=== PATIENT | male | born 1945 | race Caucasian/White ===

== ENCOUNTER 2016-05-24 10:21 | Outpatient (CLI) | payer MEDICARE, BC | END 2016-05-24 10:22 | disposition home or self-care (01) | LOC: MADLABBHPM 10:21 | PROVIDERS: ATTEND Family Medicine | DX: M79.671 Pain in right foot (principal) | CPT/HCPCS: 36415; 84550 ==

== ENCOUNTER 2018-04-15 09:20 | Outpatient (CLI) | payer MEDICARE, BC ==
--- NOTE | 2018-04-15 09:58 | RAD ---
THREE VIEWS LEFT HAND: Comparison: None. History: Third digit abscess with pain and swelling. FINDINGS: Three views of the left hand shows no evidence of acute fracture or dislocation. No osseous erosions are seen. No radiopaque foreign body is seen. No significant degenerative changes are present. IMPRESSION: Unremarkable exam. POS: C
--- NOTE | 2018-04-15 10:09 | RAD ---
TWO VIEWS RIGHT HAND: Comparison: None. History: Right hand arthritis and pain. FINDINGS: Three views of the right hand shows no evidence of acute fracture or dislocation. No significant dege nerative changes are seen. No soft tissue swelling is present. IMPRESSION: Unremarkable exam. POS: C
[2018-04-15 10:15] LABS: Cardiac Risk 4.9 (Less than 4.5)
== END 2018-04-15 09:21 | disposition home or self-care (01) ==
LOC: MADLABBHPM 09:20
PROVIDERS: ATTEND Family Medicine
DX: L02.512 Cutaneous abscess of left hand (principal); M79.641 Pain in right hand; E78.2 Mixed hyperlipidemia
CPT/HCPCS: 36415; 80061

== ENCOUNTER 2021-02-05 10:48 | Outpatient (CLI) | payer MEDICARE ==
[2021-02-05 11:26] LABS: Anion Gap 13 mmol/L (10-20); BUN (Urea Nitrogen) 22 mg/dL (8.4-25.7); Calc. Creatinine Clearance 0 mL/min (70-130); Calcium 9.4 mg/dL (7.8-10.44); Carbon Dioxide 25 mmol/L (23-31); Chloride 105 mmol/L (98-107); Glucose 97 mg/dL (83-110); Potassium 4.5 mmol/L (3.5-5.1); Sodium 138 mmol/L (136-145)
[2021-02-05 22:25] LABS: SARS-CoV-2 PCR by NAA Not Detected (NotDetected)
== END 2021-02-05 10:49 | disposition home or self-care (01) ==
LOC: MADLAB 10:48
PROVIDERS: ATTEND Student in an Organized Health Care Education/Training Program
DX: J38.00 Paralysis of vocal cords and larynx, unspecified (principal); R49.0 Dysphonia; Z95.5 Presence of coronary angioplasty implant and graft; Z91.89 Other specified personal risk factors, not elsewhere classified; R13.10 Dysphagia, unspecified
CPT/HCPCS: 36415; 80048; 85014; 85018; U0003; U0005

== ENCOUNTER 2021-12-13 16:10 | Emergency (ER) | payer MEDICARE ==
[2021-12-13] MEDS ORDERED: Tetracaine 0.5% PF 4 ML BOT ONE (16:21)
[2021-12-13] MEDS ORDERED: Fluorescein Opthalmic Strip ONE ×2 (16:21→16:26)
[2021-12-13] MEDS ORDERED: Cyclopentolate 1% Opth Drop 2 ML BOT ONE (16:45)
== END 2021-12-13 17:31 | disposition home or self-care (01) ==
LOC: MADERS 16:10
DX: H20.9 Unspecified iridocyclitis (principal)
CPT/HCPCS: 99283

== ENCOUNTER 2022-01-27 20:19 | Emergency (ER) | payer MEDICARE ==
[2022-01-27 21:39] LABS: #Basophils 0.1 thou/uL (0.0-0.2); #Eosinphils 0.1 thou/uL (0.0-0.7); #Lymphocytes 1.6 thou/uL (1.20-3.40); #Monocytes 1.1 thou/uL (0.11-0.59); #Neutrophils 8.9 thou/uL (1.40-6.50); %Basophils 0.5 % (0.0-1.0); %Eosinophils 1.3 % (0.0-10.0); %Lymphocytes 13.5 % (21.0-51.0); %Monocytes 9.6 % (0.0-10.0); %Neutrophils 75.1 % (42.0-75.0); Hemoglobin 15.2 g/dL (14.0-18.0); Mean Corpuscular HGB CONC 34.5 g/dL (32.0-36.0); Mean Corpuscular Hemoglobin 30.9 pg (27.0-31.0); Mean Corpuscular Volume 89.5 fl (78.0-98.0); Mean Platelet Volume 8.1 fL (7.4-10.4); Platelet Count 185 10x3/uL (130-400); RBC Distribution Width 11.7 % (11.5-14.5); Red Blood Cell (RBC) Count 4.92 mill/uL (4.70-6.10); White Blood Cell (WBC) Count 11.8 10x3/uL (4.8-10.8)
[2022-01-27 21:59] LABS: ALT (SGPT) 21 U/L (8-55); AST (SGOT) 19 U/L (5-34); Albumin 4.1 g/dL (3.4-4.8); Alkaline Phosphatase 99 U/L (40-110); Anion Gap 14 mmol/L (10-20); BUN (Urea Nitrogen) 22 mg/dL (8.4-25.7); Bilirubin, Total 0.5 mg/dL (0.2-1.2); Calc. Creatinine Clearance 0 mL/min (70-130); Calcium 9.8 mg/dL (7.8-10.44); Carbon Dioxide 25 mmol/L (23-31); Chloride 107 mmol/L (98-107); Estimated GFR 51; Globulin 3.3 g/dL (2.4-3.5); Glucose 148 mg/dL (83-110); Potassium 4.2 mmol/L (3.5-5.1); Protein, Total 7.4 g/dL (5.8-8.1); Sodium 142 mmol/L (136-145)
[2022-01-27] MEDS ORDERED: Amoxicillin/Potassium Clav 875 MG TAB ONE (22:24)
== END 2022-01-27 22:30 | disposition home or self-care (01) ==
LOC: MADERS 20:19
DX: K57.92 Diverticulitis of intestine, part unspecified, without perforation or abscess without bleeding (principal); K21.9 Gastro-esophageal reflux disease without esophagitis; I10 Essential (primary) hypertension; E78.5 Hyperlipidemia, unspecified; I25.10 Atherosclerotic heart disease of native coronary artery without angina pectoris; Z87.891 Personal history of nicotine dependence; Z79.82 Long term (current) use of aspirin; Z79.899 Other long term (current) drug therapy
CPT/HCPCS: 36415; 74176; 80053; 83605; 85025

== ENCOUNTER 2023-09-10 14:25 | Outpatient (CLI) | payer MEDICARE ==
[2023-09-10 15:02] LABS: Troponin I 0.022 ng/mL (< 0.028)
== END 2023-09-10 14:26 | disposition home or self-care (01) ==
LOC: MADLAB 14:25
PROVIDERS: ATTEND Family Medicine
DX: Z00.00 Encounter for general adult medical examination without abnormal findings (principal); R07.9 Chest pain, unspecified; Z11.59 Encounter for screening for other viral diseases; Z87.891 Personal history of nicotine dependence
CPT/HCPCS: 36415; 71046; 82550; 84484; 87522; 93005; 93010

== ENCOUNTER 2024-12-01 09:12 | Outpatient (CLI) | payer OTHER ==
[2024-12-01 09:41] LABS: #Basophils 0.1 thou/uL (0.0-0.2); #Eosinophils 0.1 thou/uL (0.0-0.7); #Lymphocytes 1.8 thou/uL (1.20-3.40); #Monocytes 0.7 thou/uL (0.11-0.59); #Neutrophils 5.9 thou/uL (1.40-6.50); %Basophils 1.0 % (0.0-1.0); %Eosinophils 1.3 % (0.0-10.0); %Lymphocytes 21.0 % (21.0-51.0); %Monocytes 8.4 % (0.0-10.0); %Neutrophils 68.2 % (42.0-75.0); Hematocrit 49.8 % (42.0-52.0); Hemoglobin 16.4 g/dL (14.0-18.0); Mean Corpuscular Hemoglobin 30.3 pg (27.0-31.0); Mean Corpuscular Volume 92.1 fl (78.0-98.0); Platelet Count 230 10x3/uL (130-400); Red Blood Cell (RBC) Count 5.41 mill/uL (4.70-6.10); White Blood Cell (WBC) Count 8.7 10x3/uL (4.8-10.8)
[2024-12-01 09:45] LABS: Glucose, Urine (Dipstick) >=1000 mg/dL (Negative); Leukocyte Negative (Negative); Protein, Urine (Dipstick) 30 mg/dL (Neg-Trace); Specific Gravity, Urine 1.020 (1.005-1.030)
[2024-12-01 10:08] LABS: Bacteria/HPF Rare-Few HPF (None Seen); RBC/HPF 0-3 HPF (0-3)
[2024-12-01 14:06] LABS: ALT (SGPT) 29 U/L (Less than 45); AST (SGOT) 27 U/L (11-34); Albumin 3.9 g/dL (3.1-4.5); Alkaline Phosphatase 72 U/L (40-110); Anion Gap 13 mmol/L (10-20); BUN (Urea Nitrogen) 30 mg/dL (8.4-25.7); Bilirubin, Total 0.6 mg/dL (0.3-1.2); Calc. Creatinine Clearance 0 mL/min (70-130); Calcium 9.6 mg/dL (7.8-10.44); Carbon Dioxide 25 mmol/L (23-31); Cardiac Risk 4.2 (Less than 4.5); Chloride 109 mmol/L (98-107); Cholesterol 172 mg/dl (< 200 Desired); Globulin 2.6 g/dL (2.4-3.5); Glucose 111 mg/dL (83-110); HDL Cholesterol 41 mg/dL (>60 Neg Risk); LDL Cholesterol, Calculated 103 mg/dL; Potassium 4.5 mmol/L (3.5-5.1); Sodium 142 mmol/L (136-145); Triglycerides 139 mg/dL (Less than 150)
[2024-12-01 17:11] LABS: Hep C IgG Ab NONREACTIVE S/CO (NonReactive); Hep C Index 0.05 S/CO (0-0.79); PSA-Asymptomatic (SCREENING) Less than 0.100 ng/mL (0-4.0)
== END 2024-12-01 09:13 | disposition home or self-care (01) ==
LOC: MADLAB 09:12
PROVIDERS: ATTEND Family Medicine
DX: Z12.5 Encounter for screening for malignant neoplasm of prostate (principal); Z11.59 Encounter for screening for other viral diseases; E78.2 Mixed hyperlipidemia; I10 Essential (primary) hypertension
CPT/HCPCS: 36415; 80053; 80061; 81001; 85025; 86803; G0103

== ENCOUNTER 2024-12-08 11:22 | Outpatient (CLI) | payer OTHER ==
[2024-12-08 16:47] LABS: Microalbumin-Urine 2.9 mg/dL; Microalbumin/24 Hr 5.51 mg/24 hr (Less than 30)
== END 2024-12-08 11:23 | disposition home or self-care (01) ==
LOC: MADLAB 11:22
PROVIDERS: ATTEND Family Medicine
DX: R80.9 Proteinuria, unspecified (principal)
CPT/HCPCS: 82043